=== PATIENT | female | born 1995 | race Caucasian/White ===

== ENCOUNTER 2024-03-13 12:21 | Emergency (ER) | payer BC ==
--- NOTE | 2024-03-13 12:53 | ER ---
Nurse's Notes [facility] Name: Josseline Dolan Age: 28 yrs Sex: Female : 1995 Arrival Date: 03/13/2024 Time: 12:21 Bed IW1 Private MD: Jesenia Leslie Diagnosis: Hordeolum internum left upper eyelid Presentation: 03/13 12:41 Chief complaint: Patient states: Thought she had a stye in L eye on Sunday, then eye ph began swelling, prescribed eye drops initially w/ no improvement, then placed on PO cephalexin and erythromycin ointment yesterday, continues ti have redness, swelling, and drainage from L eye. Coronavirus screen: Vaccine status: Patient reports receiving the 1st dose of the Covid vaccine. Ebola Screen: No symptoms or risks identified at this time. Initial Sepsis Screen: Does the patient meet any 2 criteria? No. Patient's initial sepsis screen is negative. Does the patient have a suspected source of infection? No. Patient's initial sepsis screen is negative. Risk Assessment: Do you want to hurt yourself or someone else? Patient reports no desire to harm self or others. Onset of symptoms was March 13, 2024. 12:41 Method Of Arrival: Ambulatory ph 12:41 Acuity: SEAN 4 ph Triage Assessment: 12:45 General: Appears in no apparent distress. Behavior is calm, cooperative. Pain: ph Complains of pain in left eye. EENT: Lid(s) swelling and redness to upper and lower lid, drainage noted. Historical: - Allergies: 12:44 Bactrim; ph - PMHx: 12:44 Hypothyroidism; ph - PSHx: 12:44 Thyroidectomy; ph - Immunization history:: Adult Immunizations up to date. 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 - Social history:: Smoking status: Patient denies any tobacco usage or history of. Screenin:46 [facility] ED Fall Risk Assessment (Adult) History of falling in the last 3 months, ph including since admission No falls in past 3 months (0 pts). [facility] ED Fall Risk Assessment (Adult) Confusion or Disorientation No (0 pts) Intoxicated or Sedated No (0 pts) Impaired Gait No (0 pts) Mobility Assist Device Used No (0 pt) Altered Elimination No (0 pt) Score/Fall Risk Level 0 - 2 = Low Risk Oriented to surroundings, Maintained a safe environment. 12:46 Abuse screen: Denies threats or abuse. Denies injuries from another. Nutritional ph screening: No deficits noted. Tuberculosis screening: No symptoms or risk factors identified. Vital Signs: 12:41 BP 128 / 78; Pulse 96; Resp 18; Temp 97.8; Pulse Ox 97% ; Weight 81.65 kg; Height 5 ft. ph 5 in. ; 12:41 Body Mass Index 29.95 (81.65 kg, 165.1 cm) ph ED Course: 12:27 Patient arrived in ED. mr 12:28 Jesenia Leslie is Private Physician. mr 12:42 Alan Reyes DO is Attending Physician. ms3 12:44 Triage completed. ph 12:45 Arm band placed on Patient placed in waiting room, Patient notified of wait time. ph 12:52 Francisco J Cruz MD is Referral Physician. ms3 13:05 No provider procedures requiring assistance completed. Patient did not have IV access ph during this emergency room visit. 13:07 Elizabeth Alexander, RN is Primary Nurse. ph Administered Medications: No medications were administered Medication: 12:46 VIS not applicable for this client. ph Outcome: 12:52 Discharge ordered by . ms3 13:08 Patient left the ED. ph 13:08 Discharged to home ambulatory, ph 13:08 Condition: good 13:08 Discharge instructions given to patient, Instructed on discharge instructions, follow up and referral plans. Demonstrated understanding of instructions, follow-up care, Signatures: Gloria Figueroa, Reg Reg mr Elizabeth Alexander RN RN ph Alan Reyes DO DO ms3
--- NOTE | 2024-03-13 13:08 | EDPHYS ---
Physician Documentation [facility] Name: Josseline Dolan Age: 28 yrs Sex: Female : 1995 Arrival Date: 03/13/2024 Time: 12:21 Bed IW1 Private MD: Jesenia Leslie ED Physician Alan Reyes HPI: 03/13 12:53 This 28 yrs old Female presents to ER via Ambulatory with complaints of Eye Swelling. [facility] [place] 12:53 28-year-old female with past medical history of hypothyroidism presents to the [facility] emergency department for upper eyelid swelling that began on Sunday. Patient states she contacted her primary care physician's office on Sunday and was instructed to apply warm compresses to the area. Patient saw her primary care physician on Sunday for topical antibiotics were prescribed. Patient states yesterday she began oral antibiotics as her symptoms have become worse.. Historical: - Allergies: 12:44 Bactrim; ph - PMHx: 12:44 Hypothyroidism; ph - PSHx: 12:44 Thyroidectomy; ph - Immunization history:: Adult Immunizations up to date. 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 - Social history:: Smoking status: Patient denies any tobacco usage or history of. ROS: 12:53 Constitutional: Negative for fever, and chills. Cardiovascular: Negative for chest ms3 pain, and palpitations. Respiratory: Negative for shortness of breath, cough, wheezing, and pleuritic chest pain, Abdomen/GI: Negative for abdominal pain, nausea, vomiting, diarrhea, and constipation, MS/Extremity: Negative for injury and deformity, 12:53 Eyes: Positive for Left eyelid swelling, Exam: 12:53 Constitutional: This is a well developed, well nourished patient who is awake, alert, ms3 and in no acute distress. Head/Face: Normocephalic, atraumatic. 12:53 Cardiovascular: Regular rate and rhythm with a normal S1 and S2. No gallops, murmurs, or rubs. Normal PMI, no JVD. No pulse deficits. Respiratory: Lungs have equal breath sounds bilaterally, clear to auscultation and percussion. No rales, rhonchi or wheezes noted. No increased work of breathing, no retractions or nasal flaring. Abdomen/GI: Soft, non-tender, with normal bowel sounds. No distension or tympany. No guarding or rebound. No evidence of tenderness throughout. 12:53 Eyes: Periorbital structures: swelling, on the left upper eyelid and left lower eyelid, Lids and lashes: stye, on the left lid, Internal, Vital Signs: 12:41 BP 128 / 78; Pulse 96; Resp 18; Temp 97.8; Pulse Ox 97% ; Weight 81.65 kg; Height 5 ft. ph 5 in. ; 12:41 Body Mass Index 29.95 (81.65 kg, 165.1 cm) ph MDM: 12:52 Patient medically screened. ms3 12:53 Differential diagnosis: Internal hordeolum versus periorbital cellulitis. Data ms3 reviewed: vital signs, nurses notes, and as a result, I will discharge patient. Counseling: I had a detailed discussion with the patient and/or guardian regarding the historical points, exam findings, and any diagnostic results supporting the discharge/admit diagnosis, the need for outpatient follow up, to return to the emergency department if symptoms worsen or persist or if there are any questions or concerns that arise at home. Special discussion: I discussed with the patient/guardian in detail that at this point there is no indication for admission to the hospital. It is understood, however, that if the symptoms persist or worsen the patient needs to return immediately for re-evaluation. ED course: Discussed physical exam findings with patient. Patient to follow-up with Dr. Cruz in 2 to 3 days for reevaluation. Patient understands and agrees with plan. All questions were answered. Return precautions discussed include worsening symptoms, or any other concerns. Administered Medications: No medications were administered Disposition: 18:07 Chart complete. ms3 Disposition Summary: 03/13/24 12:52 Discharge Ordered Notes: Location: Home ms3 Condition: Stable ms3 Diagnosis - Hordeolum internum left upper eyelid ms3 Followup: ms3 - With: Francisco J Cruz MD - When: 2 - 3 days - Reason: Recheck today's complaints Discharge Instructions: - Discharge Summary Sheet ms3 - Stye ms3 Forms: - Medication Reconciliation Form ms3 - Antibiotic Education ms3 - Prescription Opioid Use ms3 - Patient Portal Instructions ms3 - Leadership Thank You Letter ms3 - Work release form [id number] Signatures: Elizabeth Alexander RN RN ph Alan Reyes DO DO ms3 Corrections: (The following items were deleted from the chart) 16:15 12:53 Eyes: Periorbital structures: swelling, on the left upper eyelid and left lower ms3 eyelid, ms3
[2024-03-13 13:21] VITALS: BP 128/78; TEMP 97.8; O2SAT 97
== END 2024-03-13 13:08 | disposition home or self-care (01) ==
LOC: ER 12:21
DX: H00.024 Hordeolum internum left upper eyelid (principal); Z88.1 Allergy status to other antibiotic agents
CPT/HCPCS: 99282